=== PATIENT | female | born 1985 | race Caucasian/White ===

== ENCOUNTER 2017-09-27 01:52 | Inpatient (IN) | payer BC ==
[~2017-09-27] VITALS: Ht 160 cm; Wt 72.3 kg
[2017-09-27] VITALS (19 sets, daily range): BP systolic 105–121; BP diastolic 59–82; PULSE 67–83; TEMP 97.8–99
[~2017-09-27 01:52] MED LIST: ATIVAN 0.50.5 MG/TAB PO; CAMILA0.35 MG PO; CELEXA; COMBIVENT INH14.7 GM IH; ESCITALOPRAM; FLOVENT DI50 MCG/Act IH; LEVOXYL0.125 MG PO; MELOXICAM; NASACORT AQ N16.5 GM NS; NASACORT NS; NUVARING1 ICR VG; PERCOCET 325 MG1 TA2 PO; PHENERGAN 25 TA25 MG PO; PHENERGAN25 MG RC; PREDNISONE20 MG PO; PRENATAL1 TA2 PO; TREXIMET 500 MG1 TAB PO; TYLENOL 325MG325 MG PO; VENTOLIN0.09 MG IH; ZYRTEC-D 5 MG-11 TER PO; [UNRECOGNIZED DRUG - OTHER]; nuva ring
[2017-09-27] MEDS ORDERED: FLAGYL500 MG PO (02:19)
[2017-09-27 03:23] LABS: BASO % 0.4 % (0.0-2.0); EOS # 0.1 (0.0-0.7); EOS % 0.6 % (0-4.0); GRAN # 6.7 (1.4-6.5); GRAN % 77.7 % (42.2-75.2); HEMATOCRIT 34.2 % (37.0-47.0); HEMOGLOBIN 11.5 g/dl (12.5-16.0); LYMPH # 1.1 (1.2-3.4); LYMPH % 12.4 % (20.0-51.0); MEAN CELL VOLUME 84 fl (80.0-100.0); MEAN CORPUSCULAR HEMOGLOBIN 28 pg (27.0-31.0); MEAN CORPUSCULAR HGB CONC 34 g/dl (33.0-37.0); MEAN PLATELET VOLUME 8.3 fl (7.4-10.4); MONO # 0.7 (0.1-0.6); MONO % 8.3 % (1.7-9.3); PLATELET COUNT 218 K/mm3 (130-400); RED BLOOD COUNT 4.05 M/mm3 (4.10-5.30); WHITE BLOOD COUNT 8.6 K/mm3 (4.8-10.8)
[2017-09-28 02:25] VITALS: BP 115/73; PULSE 65; TEMP 98.3
[2017-09-28] MEDS ORDERED: IBU600 MG PO (09:12)
[2017-09-28 09:52] VITALS: BP 113/75; PULSE 73; TEMP 98.5
== END 2017-09-28 13:05 | disposition home or self-care (01) | DRG 774 ==
LOC: LDRO 01:52 → LDR 02:41 → OB 02:41
PROVIDERS: Obstetrics & Gynecology
PROC: 10E0XZZ Delivery of Products of Conception, External Approach (ICD-10-PCS; principal; 2017-09-27)
DX: O48.0 Post-term pregnancy (principal); O75.3 Other infection during labor; O99.284 Endocrine, nutritional and metabolic diseases complicating childbirth; E03.9 Hypothyroidism, unspecified; B96.89 Other specified bacterial agents as the cause of diseases classified elsewhere; N76.0 Acute vaginitis; Z3A.40 40 weeks gestation of pregnancy; Z37.0 Single live birth
CPT/HCPCS: J2590; J7120

== ENCOUNTER → 2017-11-20 | Outpatient (CLI) | payer BC ==
[~2017-11-20] MED LIST changes: +FLAGYL500 MG PO; +IBU600 MG PO
== END ==
LOC: LAC 09:54
DX: Z01.89 Encounter for other specified special examinations (principal)

== ENCOUNTER → 2017-12-04 | Outpatient (CLI) | payer BC | LOC: LAC 09:50 | DX: Z39.1 Encounter for care and examination of lactating mother (principal); Z71.89 Other specified counseling ==

== ENCOUNTER → 2018-01-08 | Outpatient (CLI) | payer BC | LOC: OLC 09:45 | DX: Z39.1 Encounter for care and examination of lactating mother (principal); Z71.89 Other specified counseling ==

== ENCOUNTER 2019-01-09 17:18 | Emergency (ER) | payer BC ==
[2019-01-09 17:23] VITALS: BP 127/83; TEMP 98.5
[2019-01-09 17:48] LABS: COLLECTION METHOD CLEAN CATCH
[2019-01-09 17:54] LABS: PH 6 (5-8); SQUAMOUS EPITHELIAL 0-2 /hpf; URINE APPEARANCE Clear; URINE BACTERIA None Seen /hpf; URINE BILIRUBIN Negative (NEGATIVE); URINE BLOOD 1+ (NEGATIVE); URINE COLOR Straw; URINE GLUCOSE Negative (NEGATIVE); URINE KETONE Negative (NEGATIVE); URINE LEUKOCYTE ESTERASE Negative (NEGATIVE); URINE NITRATE Negative (NEGATIVE); URINE PROTEIN(semi-quant) Negative (NEGATIVE); URINE RBC None Seen /hpf; URINE UROBILINOGEN Negative (NEGATIVE); URINE WBC 0-2 /hpf
[2019-01-09 19:35] VITALS: PULSE 81
== END 2019-01-09 19:36 | disposition home or self-care (01) ==
LOC: COL.ER 17:18
PROVIDERS: Emergency Medicine
DX: S20.222A Contusion of left back wall of thorax, initial encounter (principal); E03.9 Hypothyroidism, unspecified; W10.9XXA Fall (on) (from) unspecified stairs and steps, initial encounter; Y92.009 Unspecified place in unspecified non-institutional (private) residence as the place of occurrence of the external cause

== ENCOUNTER 2019-09-26 14:39 | Outpatient (CLI) | payer BC ==
[~2019-09-26] VITALS: Wt 59.1 kg
[2019-09-26] VITALS (18 sets, daily range): BP systolic 113–143; BP diastolic 64–95; PULSE 59–91; TEMP 98–99.2
--- NOTE | 2019-09-26 14:45 | NUR ---
Patient ambulatory to LR2, changed into gown. Patient to bed and calls out stating she was bleeding alot. Dr. Badillo and this RN at bedside Patient in bed and lemon size blood clot noted on floor. Plan of care discussed. 1450: Dr Badillo at bedside to assess patient. Blood clots/small gestational sac noted on chela, collected and sent to pathology. Dr. Badillo continues exam with speculum at this time and patient tolerating well. Vital signs stable and patient no longer feeling cramping pain that she states she had while coming to hospital. Pericare done and patient to bathroom to void. New gown and underwear/pad placed. Patient ambulatory back to bed. Patient states "I could tell from the beginning of something wasnt right, I began to spot on and off on September 13, then it became heavier bleeding on and knew that was not a good sign, at my appt Sunday they could not find a heart beat on the vaginal sono and have spotting since, this morning I have been having alot more bleeding and clots and had some cramping on the way here" Omayra RN given report.
--- NOTE | 2019-09-26 15:18 | NUR ---
patient states she feels rectal pressure and needs to void. Patient ambulates to bathroom. Able to void and passes 4 half dollar sized clots. Patient states the pressure feeling is gone. Pericare and back to bed. Dr. Badillo at nurses station and notified of clots. Verbal order for CBC and to start INT. 1530: INT in right wrist 20G placed, CBC collected from IV site.
--- NOTE | 2019-09-26 15:40 | NUR ---
Patient up to bathroom, feeling rectal pressure again. Able to void, passes 1 half dollar sized clot, no free flow bleeding noted. No blood on peripad.
[2019-09-26 15:46] LABS: HEMOGLOBIN 11.6 g/dl (12.5-16.0); MEAN CELL VOLUME 85 fl (80.0-100.0); MEAN CORPUSCULAR HEMOGLOBIN 29 pg (27.0-31.0); MEAN CORPUSCULAR HGB CONC 34 g/dl (33.0-37.0); MEAN PLATELET VOLUME 8.8 fl (7.4-10.4); PLATELET COUNT 264 K/mm3 (130-400); RED BLOOD COUNT 4.05 M/mm3 (4.10-5.30); REDCELL DISTRIBUTION WIDTH-CV 12.2 % (11.5-14.5)
[2019-09-26 15:47] LABS: HEMATOCRIT 34.5 % (37.0-47.0)
--- NOTE | 2019-09-26 16:40 | NUR ---
1635 MOTRIN [address] ORDER FOR CRAMPING. US STAFF AT BEDSIDE TO TAKE PATIENT FOR SONOGRAM. PATIENT DENIES NEEDS.
--- NOTE | 2019-09-26 17:50 | NUR ---
Dr. Badillo in room and discusses ultrasound results with patient and plan for D&C. Patient verbalizes understanding but will talk to on phone before starting procedure.
--- NOTE | 2019-09-26 18:10 | NUR ---
Patient ambulates back to OR.
--- NOTE | 2019-09-26 18:45 | NUR ---
To room via bed from OR, accompanied by FLOORING MECHANIC and RN's X 2. Drowsy, awakens easily orientd. Plan of care reviewed encouraged to rest.
[2019-09-26] MEDS ORDERED: IBU800 M1 PO (18:49)
--- NOTE | 2019-09-26 19:45 | NUR ---
up to bathroom with steady gait, scant bleeding on pad, no clots. Voids without difficulty. Back to bed to rest.
--- NOTE | 2019-09-26 21:15 | NUR ---
INT dc'd. Discharge instructions reviewed. Questions invited and answered. Changed into clothes for home.
--- NOTE | 2019-09-26 21:20 | NUR ---
Off unit via wheelchair. Will wait for @ ER entrance. denies needs.
== END 2019-09-26 21:20 | disposition home or self-care (01) ==
LOC: LDRO 14:39 → LDR 14:45 → LDRO 21:20
PROVIDERS: Student in an Organized Health Care Education/Training Program
DX: O03.4 Incomplete spontaneous abortion without complication (principal); E03.9 Hypothyroidism, unspecified; J45.909 Unspecified asthma, uncomplicated
CPT/HCPCS: OP; J1885; J2210; J2405; J2704; J7120

== ENCOUNTER → 2020-08-12 | Outpatient (CLI) | payer OTHER ==
[~2020-08-12] MED LIST changes: +IBU800 M1 PO
== END ==
LOC: COL.RAD 08-11 07:30
DX: R10.13 Epigastric pain (principal)

== ENCOUNTER → 2020-10-18 | Outpatient (CLI) | payer OTHER | LOC: COL.RAD 09:36 | DX: K21.9 Gastro-esophageal reflux disease without esophagitis (principal); R10.13 Epigastric pain | CPT/HCPCS: A9537; J2805 ==

== ENCOUNTER 2021-01-06 21:35 | Emergency (ER) | payer OTHER ==
[~2021-01-06] VITALS: Ht 160 cm; Wt 54.5 kg
[2021-01-06 21:46] VITALS: BP 146/100; TEMP 98.3
[2021-01-06] MEDS ORDERED: DOXYCYCLINE 10100 MG PO (22:08)
[2021-01-06 22:28] VITALS: PULSE 72
== END 2021-01-06 22:29 | disposition home or self-care (01) ==
LOC: COL.ER 21:35
DX: S80.862A Insect bite (nonvenomous), left lower leg, initial encounter (principal); L03.116 Cellulitis of left lower limb; Z88.8 Allergy status to other drugs, medicaments and biological substances; Z88.6 Allergy status to analgesic agent; W57.XXXA Bitten or stung by nonvenomous insect and other nonvenomous arthropods, initial encounter

== ENCOUNTER → 2021-07-21 | Outpatient (CLI) | payer OTHER ==
[~2021-07-21] MED LIST changes: +DOXYCYCLINE 10100 MG PO; +NATURAL IRON65 MG; +VITAMIND3 5000 PO
== END ==
LOC: COL.RAD 12:28
DX: O99.891 Other specified diseases and conditions complicating pregnancy (principal); N13.30 Unspecified hydronephrosis; Z3A.24 24 weeks gestation of pregnancy; Z96.0 Presence of urogenital implants

== ENCOUNTER 2021-09-01 13:35 | Outpatient (CLI) | payer OTHER ==
[~2021-09-01] VITALS: Ht 160 cm; Wt 58.6 kg
[~2021-09-01 13:35] MED LIST changes: -NATURAL IRON65 MG; -VITAMIND3 5000 PO
[2021-09-01] MEDS ORDERED: VITAMIND3 5000 PO (13:57)
[2021-09-01] MEDS ORDERED: NATURAL IRON65 MG (13:57)
[2021-09-01 14:00] VITALS: BP 128/71; PULSE 69; TEMP 97.8
--- NOTE | 2021-09-01 14:25 | NUR ---
1340: PT. AMBULATORY TO UNIT FOR C/O LIDIA GARCIA CTX. ESCORTED TO LR3. CHANGED INTO GOWN AND ORIENTED TO ROOM. EFM/TOCO APPLIED, VS OBTAINS, ASSESSMENTS COMPLETED, AND POC DISCUSSED. PT. STATES SHE HAS BEEN FEELING LIDIA GARCIA CTX FOR THE LAST COUPLE WEEKS AND WERE MORE INTENSE TODAY. PT. IS REQUESTING RN TO DISCUSS W/ DR. BEFORE PERFORMING SVE. WILL CONTINUE TO MONITOR PT
--- NOTE | 2021-09-01 14:57 | NUR ---
1450: DISCUSSED W/ PT. ABOUT SVE. PT. IS HESITANT. INFORMED PT. SHE HAS A RIGHT TO REFUSE SVE. EXPLAINED RISKS OF NOT HAVING BASELINE SVE AND WHAT IS GOING ON INSIDE. PT. STATES UNDERSTANDING. ASKS FOR TIME TO "THINK ABOUT IT". 1455: RN WENT INTO ROOM TO ADJUST EFM DUE TO TRACING MATERNAL HR. PT. FOUND TO BE SITTING UP AND TOLD RN SHE IS REFUSING SVE. RN GOT 2 MIN OF HEART TONES BEFORE D/C EFM/TOCO. TOLD PT TO GET DRESSED AND DC INSTRUCTIONS WILL BE PRINTED FOR HER
--- NOTE | 2021-09-01 15:26 | NUR ---
FHT: 1430: PERIOD OF BROKEN STRIP NOTED 1455: PERIOD OF BROKEN STRIP. TRACING MHR. ADJUSTED EFM. HEART TONES TRACING.
--- NOTE | 2021-09-01 15:32 | NUR ---
1519: PT. DISCHARGED PER DR. AGUILAR. D/C INSTRUCTIONS GONE OVER AND QUESTIONS ANSWERED. PT. ESCORTED TO EXIT OF UNIT BY THIS RN. EXPLAINED TO CALL BACK WITH ANY QUESTIONS. PT. IN STABLE CONDITION
== END 2021-09-01 15:19 | disposition home or self-care (01) ==
LOC: LDRO 13:35 → LDR 13:45 → LDRO 15:19
DX: O47.03 False labor before 37 completed weeks of gestation, third trimester (principal); Z3A.30 30 weeks gestation of pregnancy
CPT/HCPCS: OP

== ENCOUNTER 2021-11-09 02:12 | Inpatient (IN) | payer OTHER ==
[2021-11-09] VITALS (10 sets, daily range): BP systolic 117–130; BP diastolic 68–90; PULSE 65–88; TEMP 98.4–98.8
[~2021-11-09] VITALS: Ht 160 cm; Wt 62.7 kg
[~2021-11-09 02:12] MED LIST changes: +NATURAL IRON65 MG; +VITAMIND3 5000 PO
--- NOTE | 2021-11-09 02:38 | NUR ---
PT REPORTS STRONG PRESSURE AND REQUESTS DOCTOR AT BEDSIDE FOR DELIVERY. RN CHECKED PT'S CERVIX AND PT IS ALMOST COMPLETE WITH BULGING BAG, BABE 0/+1 STATION. CHENTE FERGUSON ON PHONE WITH PROVIDER AND REQUESTS PROVIDER'S PRECENSE AT BEDSIDE
--- NOTE | 2021-11-09 02:48 | NUR ---
18G IV PLACED BY CHRIS GONZALEZ IN PT'S RIGHT FOREARM
--- NOTE | 2021-11-09 02:50 | NUR ---
DR. SERRA PRESENT ON UNIT
--- NOTE | 2021-11-09 02:55 | NUR ---
PT'S CERVIX 9CM PER DR. SERRA. PROVIDER ATTEMPTED TO RUPTURE IS INCONCLUSIVE OF RUPTURE
--- NOTE | 2021-11-09 03:03 | NUR ---
PT REPORTS FEELING THE OVERWHELMING URGE TO PUSH. DR. SERRA PRESENT AT BEDSIDE AND PT IS PREPPED FOR DELIVERY
[2021-11-09 03:07] LABS: BASO % 0.2 % (0.0-2.0); EOS % 0.2 % (0.0-4.0); GRAN # 8.6 K/mm3 (1.4-6.5); GRAN % 83.4 % (42.2-75.2); HEMOGLOBIN 12.6 g/dl (12.5-16.0); LYMPH # 0.9 K/mm3 (1.2-3.4); LYMPH % 9.1 % (20.0-51.0); MEAN CELL VOLUME 84 fl (80.0-100.0); MEAN CORPUSCULAR HEMOGLOBIN 30 pg (27-31); MEAN CORPUSCULAR HGB CONC 35 g/dl (33.0-37.0); MEAN PLATELET VOLUME 8.5 fl (7.4-10.4); MONO # 0.7 K/mm3 (0.1-0.6); MONO % 6.7 % (1.7-9.3); PLATELET COUNT 232 K/mm3 (130-400); RED BLOOD COUNT 4.24 M/mm3 (4.10-5.30); REDCELL DISTRIBUTION WIDTH-CV 14.2 % (11.5-14.5)
[2021-11-09 03:12] LABS: HEMATOCRIT 35.7 % (37.0-47.0)
--- NOTE | 2021-11-09 03:15 | NUR ---
PT STRAIGHT CATHED BY PROVIDER AND 100ML URNINE REMOVED FROM BLADDER
--- NOTE | 2021-11-09 04:00 | NUR ---
PT REQUESTED BP CUFF TO BE TAKEN OFF. RN PROVIDED EDUCATION AND PT VERBALIZED AN UNDERSTANDING. PT RESTING IN BED NURSING BABE, NO SIGNS OF DISTRESS. PT DENIES FURTHER NEEDS AT THIS TIME.
--- NOTE | 2021-11-09 05:00 | NUR ---
PT AMBULATED TO BATHROOM WELL WITH STEADY GAIT. PERICARE PROVIDED AND PT ASSISTED INTO NORMAL CLOTHES.
--- NOTE | 2021-11-09 05:10 | NUR ---
PT AMBULATED TO ROOM 214. RN DEMONSTRATED CALL LIGHT SYSTEM AND BATHROOM CALL LIGHT, PT VERBALIZED AN UNDERSTANDING. PT DENIES FURTHER NEEDS AT THIS TIME
[2021-11-10 07:30] VITALS: BP 111/74; PULSE 73; TEMP 97.9
--- NOTE | 2021-11-10 10:15 | NUR ---
Initial visit; Parents thanked Branch Operation Evaluation Manager for offering congratulations and God's blessings for the of their dauhgter. Branch Operation Evaluation Manager thanked family for choosing [facility].
== END 2021-11-10 14:10 | disposition home or self-care (01) | DRG 806 ==
LOC: LDRO 02:12 → LDR 02:37 → OB 02:37
PROVIDERS: Student in an Organized Health Care Education/Training Program; ADMIT Obstetrics & Gynecology
PROC: 10E0XZZ Delivery of Products of Conception, External Approach (ICD-10-PCS; principal; 2021-11-09)
DX: O99.284 Endocrine, nutritional and metabolic diseases complicating childbirth (principal); N13.30 Unspecified hydronephrosis; Z37.0 Single live birth; O99.892 Other specified diseases and conditions complicating childbirth; E03.9 Hypothyroidism, unspecified; O99.513 Diseases of the respiratory system complicating pregnancy, third trimester; J45.909 Unspecified asthma, uncomplicated; O69.1XX0 Labor and delivery complicated by cord around neck, with compression, not applicable or unspecified; Z3A.40 40 weeks gestation of pregnancy
CPT/HCPCS: J2590; J7030; J7120